=== PATIENT | male | born 1940 | race Caucasian/White ===

== ENCOUNTER → 2018-06-09 | Outpatient (CLI) | payer OTHER ==
--- NOTE | 2018-06-09 10:43 | US ---
EXAMINATION TYPE: US duplex aorta DATE OF EXAM: 06/09/2018 COMPARISON: NONE CLINICAL HISTORY: Z13.9 Encounter for screening. EXAM MEASUREMENTS: Abdominal Aorta: Proximal: 2.2 x 1.9 cm Mid: 1.8 x 1.8 cm Distal: 1.9 x 1.8 cm Bifurcation: 0.8 cm 0.9 cm No evidence of AAA IMPRESSION: No evidence of AAA
== END | disposition home or self-care (01) ==
LOC: RADUSWWP 09:14
DX: Z13.9 Encounter for screening, unspecified (principal)
CPT/HCPCS: 93979

== ENCOUNTER → 2020-04-18 | Outpatient (CLI) | payer MEDICARE ==
--- NOTE | 2020-04-22 11:49 | ECHOF ---
Referral Reason:R06.09 Dyspnea MEASUREMENTS -------- HEIGHT: 172.7 cm WEIGHT: 64.9 kg BP: RVIDd: 2.0 cm (< 3.3) IVSd: 1.2 cm (0.6 - 1.1) LVIDd: 3.2 cm (3.9 - 5.3) LVPWd: 1.1 cm (0.6 - 1.1) IVSs: 1.6 cm LVIDs: 2.3 cm LVPWs: 1.4 cm LA Diam: 3.4 cm (2.7 - 3.8) LAESV Index (A-L): 23.96 ml/m MV EXCURSION: 16.659 mm (> 18.000) MV EF SLOPE: 66 mm/s (70 - 150) EPSS: 0.2 cm MV E Felipe: 0.82 m/s MV DecT: 294 ms MV A Felipe: 1.30 m/s MV E/A Ratio: 0.63 AV maxP.83 mmHg AV meanP.64 mmHg RAP: 5.00 mmHg RVSP: 43.20 mmHg FINDINGS -------- Sinus rhythm. This was a technically adequate study. The left ventricular size is normal. There is mild concentric left ventricular hypertrophy. Overa ll left ventricular systolic function is normal with, an EF between 55 - 60 %. The diastolic fillin g pattern is normal for the age of the patient 11.65. The right ventricle is normal in size. The left atrial size is normal. The right atrial size is normal. There is mild aortic stenosis present. Peak/mean gradient across the Aortic Valve is 12.83mmHg / 6. 64mmHg. The mitral valve leaflets are mildly thickened. Mild mitral regurgitation is present. Mild tricuspid regurgitation present. There is mild pulmonary hypertension. Trace/mild (physiologic) pulmonic regurgitation. The aortic root size is normal. There is no pericardial effusion. CONCLUSIONS -------- 1. The left ventricular size is normal. 2. There is mild concentric left ventricular hypertrophy. 3. Overall left ventricular systolic function is normal with, an EF between 55 - 60 %. 4. The diastolic filling pattern is normal for the age of the patient 11.65 5. The right ventricle is normal in size. 6. The left atrial size is normal. 7. The right atrial size is normal. 8. There is mild aortic stenosis present. 9. Peak/mean gradient across the Aortic Valve is 12.83mmHg / 6.64mmHg. 10. The mitral valve leaflets are mildly thickened. 11. Mild mitral regurgitation is present. 12. Mild tricuspid regurgitation present. 13. There is mild pulmonary hypertension. 14. Trace/mild (physiologic) pulmonic regurgitation. 15. The aortic root size is normal. 16. There is no pericardial effusion. SUPERVISOR PUMPING: Sonali Arredondo RDCS
== END | disposition home or self-care (01) ==
LOC: RADECHMAIN 10:37
PROVIDERS: ATTEND Family Medicine
DX: I08.1 Rheumatic disorders of both mitral and tricuspid valves (principal); I27.20 Pulmonary hypertension, unspecified
CPT/HCPCS: 93306